=== PATIENT | male | born 1995 | race Caucasian/White ===

== ENCOUNTER 2018-06-23 20:06 | Emergency (ER) | payer SELFPAY ==
[2018-06-23 20:07] VITALS: BP 154/87; PULSE 85; RESP 16; TEMP 36.9; O2SAT 99; BMI 27.3
--- NOTE | 2018-06-23 20:52 | ED.RN ---
SITTER IN THE ROOM
[2018-06-23 20:53] LABS: Anion Gap 4 (5-15); BUN 15 mg/dL (7-18); Calcium,Total 8.9 mg/dL (8.5-10.1); Chloride 109 mmol/L (98-107); EST Glomerular Filtration Rate 99 mL/min (>60); Est Glom Filt Rate - Afr Amer 120 mL/min (>60); Estimated Creatinine Clearance 115.87 ml/min; Glucose 90 mg/dL (74-106); Potassium 4.6 mmol/L (3.5-5.1); Sodium Level 141 mmol/L (136-145)
[2018-06-23 20:59] LABS: Absolute Lymphocyte Count 2.88 X10^3/ul (0.83-4.51); Absolute Neutrophil Count 7.5 X10^3/uL (2.0-7.7); Basophil# 0.03 X10^3/uL; Basophil% 0.3 % (0-1); Eosinophil# 0.27 X10^3/uL; Eosinophils% 2.4 % (0-5); Hematocrit 45.7 % (40-54); Hemoglobin 15.7 g/dl (13.0-16.5); Lymphocyte # 2.88 X10^3/ul (4.0); Lymphocyte % 25.1 % (19-41); Mean Corp Hgb Conc 34.4 g/gl (32-36); Mean Corpuscular Hgb 30.3 pg (27.0-32.0); Mean Corpuscular Volume 88.1 fL (80-94); Mean Platelet Vol. 11.5 fl (6.2-12.0); Monocyte# 0.81 X10^3/uL; Monocyte% 7.1 % (0-10); Neutrophil # 7.46 X10^3/uL (2.7-7.7); Neutrophil % 64.9 % (47-70); Platelet Count 223 K/mm3 (150-450); RBC Distribution Width CV 12.3 % (11.6-14.6); RBC Distribution Width SD 39.6 fl (35.1-43.9); Red Blood Count 5.19 M/mm3 (4.6-6.2); White Blood Count 11.5 K/mm3 (4.4-11.0)
[2018-06-23 21:00] LABS: POSITIVE COUNT NO; POSITIVE DIFFERENTIAL NO; POSITIVE MORPHOLOGY NO
--- NOTE | 2018-06-23 21:04 | ED.VISSUMM ---
- ER Visit Summary Date of Service: 06/23/18 Chief Complaint: Depression History of Present Illness: The patient is a 22 M who goes to [facility]. Reports he has had problems with depression for the past 4 years. States he has had suicidal thoughts daily for the past 2 years. He does not have a plan to harm himself. He denies any auditory hallucinations. No homicidal ideation. Patient reports that he tried Paxil once for 1-2 months and did not like the way it made him feel. He is self-medicating with alcohol and marijuana. Review of systems: General: No fever, chills, cold sweats. Cardiovascular: No chest pain, palpitations. Respiratory: No cough, shortness of breath, dyspnea on exertion. Gastrointestinal: No abdominal pain, nausea, vomiting, diarrhea, melena, or hematochezia. Genitourinary: No dysuria, frequency, hematuria. Skin: No rash. Neuro: No headache, numbness, weakness. Physical Examination: Vitals: Stable. Afebrile. General: Well-nourished and well-developed. Head: Normocephalic atraumatic. Neck: Supple, no lymphadenopathy. No JVD. Nontender. Cardiovascular: Regular rate and rhythm. No murmurs. Respiratory: No respiratory distress. Clear to auscultation bilaterally. Abdominal: Soft, nontender, nondistended, normal bowel sounds. No guarding, rebound, or peritoneal signs. Back: Nontender. Extremities: Nontender, no edema. Skin: Normal color, no rash. Neurologic: Alert and oriented ?3. Cranial nerves II through XII are intact. Normal strength and sensation. Mental status exam: Patient appears their stated age. Good posture and grooming. Good eye contact. Normal rate, volume, and latency of speech. No suicidal or homicidal ideation. No auditory or visual hallucinations. Flow of thought is logical. Insight and judgment is fair. Test Results: CBC is remarkable for a white count of 11.5. Chem-7 is more for chloride 109. Blood alcohol level of 0. Emergency Department Course and Treatment: I had a prolonged discussion with the patient. At this time he does not have suicidal ideation or plan to harm himself. He is able to contract for safety. Treatment Plan: Patient will be discharged instructions to follow-up the counseling center soon as possible. He does not want to be placed on an antidepressant. Return to the emergency department for any worsening symptoms. Disposition: To home in improved and stable condition. Impression: 1. Depression. This note was generated with [employer] dictation software. It may contain incorrect words, spelling, and punctuation that were not noted in review of the chart prior to signing ED Disposition - Plan for ED Patient: Disposition: Home or Assisted Living Chief Complaint: Mental Health Instructions: ED Depression Prescriptions: Ranitidine [Zantac] 300 mg PO DAILY #30 tablet Referrals: Counseling,Center [GROUP OF PHYSICIANS] -
[2018-06-23 21:27] VITALS: RESP 14
[2018-06-23 21:30] LABS: Alcohol, Blood (Medical)-Serum < 3.0 mg/dL
--- NOTE | 2018-06-23 21:42 | ED.RN ---
DR. ADDISON AT BEDSIDE TO EVALUATE PT. PT TO BE DISCHARGED HOME. VERBAL ORDERS FROM DR. ADDISON TO D/C [facility].
--- NOTE | 2018-06-23 21:53 | ED.RN ---
THIS RN AT BEDSIDE WITH DR. ADDISON AND PT AND PT MOTHER. PT REPORTS TO DR. ADDISON THAT HE HAS BEEN FEELING SUICIDAL CONSISTENTLY FOR THE LAST TWO YEARS. PT REPORTS EXPLOSIVE ANGER ISSUES. DR. ADDISON EDUCATING PT ON PROPER TECHNIQUES TO CHANNEL ANGER AND THOUGHTS, POTENTIALLY THROUGH JOURNALING. PT REPORTS THAT HE DOES HAVE A CLEAR PLAN, MAKES VAGUE REFERENCES TO SHOOTING HIMSELF. 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 PT MOTHER REPORTS THAT SHE FEELS COMFORTABLE GOING HOME, AND PT REPORTS HE FEELS SAFE GOING HOME. DR. ADDISON AND THIS RN EDUCATED PT TO RETURN TO ED IF HAVING ANY NEW OR WORSENED SX. PT CLEARED BY DR. ADDISON FOR DISCHARGE.
== END 2018-06-23 22:53 | disposition home or self-care (01) ==
PROVIDERS: Emergency Provider Emergency Medicine
DX: F32.9 Major depressive disorder, single episode, unspecified (principal); F41.9 Anxiety disorder, unspecified; R45.851 Suicidal ideations; F10.20 Alcohol dependence, uncomplicated; F12.90 Cannabis use, unspecified, uncomplicated
CPT/HCPCS: 80048; 80320; 85025; 99283; G0480